=== PATIENT | female | born 1940 | race Caucasian/White ===

== ENCOUNTER → 2016-10-16 | Outpatient (CLI) | payer MEDICARE ==
[~2016-10-16] MED LIST: ASPIR-LOW81 MG PO; CATAPRES 0.1MG0.1 MG PO; CELEXA20 MG PO; COMBIVENT0.074 GM/I INH; COREG 3.125M3.125 MG PO; CRESTOR10 MG PO; CRESTOR20 MG PO; DULERA 200 MCG8.8 GM INH; FERROUS SULFAT325 M2 PO; FUROSEMIDE40 MG PO; HUMALOG 75/25 V10 ML SQ; HYDRALAZINE HCL50 MG PO; IMDUR ER TAB 6060 MG PO; ISOSORBIDE DINI30 MG PO; LOSARTAN POTAS100 MG PO; SODIUM BICARBO650 MG PO
== END ==
LOC: HEART 5 10:52
DX: I65.23 Occlusion and stenosis of bilateral carotid arteries (principal)

== ENCOUNTER → 2016-10-23 | Outpatient (CLI) | payer MEDICARE | LOC: HEART 5 10-19 08:45 | DX: I25.10 Atherosclerotic heart disease of native coronary artery without angina pectoris (principal) | CPT/HCPCS: 78452; A9502; J2785 ==